=== PATIENT | female | born 1930 | race Caucasian/White ===

== ENCOUNTER 2019-08-24 10:23 | Inpatient (IN) | payer OTHER, MEDICAID ==
[~2019-08-24] VITALS: Ht 157.5 cm; Wt 68.9 kg
[2019-08-24] MEDS ORDERED: SODIUM CHLORIDE 0.9% 500 ML IV ONE (10:36)
[2019-08-24] MEDS ORDERED: ONDANSETRON HCL 4 MG/2 ML VIAL IV ONE (10:45)
[2019-08-24] MEDS ORDERED: MORPHINE SULF INJ 2 MG/ML SYRINGE 1ML IV ONE (10:45)
[2019-08-24 11:07] LABS: Basophils # (auto) 0.1 uL; Basophils % (auto) 1.3 % (0.0-2.0); Eosinophils # (auto) 0.1 uL; Eosinophils % (auto) 1.2 % (0.0-7.0); Hematocrit 39.7 % (36.0-46.0); Hemoglobin 13.9 g/dL (12.2-16.2); Lymphocytes # (auto) 2.9 uL; Lymphocytes % (auto) 27.3 % (10.0-50.0); Mean Corpuscular Hemoglobin 32.6 pg (28.0-32.0); Mean Corpuscular Hgb Conc. 35.1 g/dL (32.0-36.0); Mean Corpuscular Volume 92.8 fL (80.0-100.0); Monocytes # (auto) 0.9 uL; Neutrophils # (auto) 6.4 uL; Neutrophils % (auto) 61.2 % (37.0-80.0); Platelet Count (auto) 216 10^3/uL (140-450); Red Blood Cells 4.28 10^6/uL (4.0-5.20); White Blood Cell 10.5 10^3/uL (4.4-10.8)
[2019-08-24 11:32] LABS: Albumin 3.7 g/dL (3.4-5.0); BUN/Creatinine Ratio 12.9; Calcium 8.7 mg/dL (8.5-10.1); Potassium 3.9 mmol/L (3.5-5.1)
[2019-08-24 11:36] LABS: Bilirubin, Total 0.7 mg/dL (0.2-1.0); Total Protein 7.3 g/dL (6.4-8.2)
[2019-08-24 12:24] LABS: Urine Bacteria NONE SEEN /hpf (None Seen); Urine Blood 1+ /uL (Negative); Urine Specific Gravity 1.013 (1.001-1.035); Urine WBC 1204 /hpf (0 - 5); Urine WBC Clumps PRESENT /hpf (None Seen)
[2019-08-24] MEDS ORDERED: traMADol HCL 50 MG TAB PO PRN (15:00)
[2019-08-24] MEDS ORDERED: ZOLPIDEM TARTRATE 5 MG TAB PO PRN (15:00)
[2019-08-24] MEDS ORDERED: cefTRIAXone 1GM/50ML D5W 50 ML IV ONE (15:00)
[2019-08-24] MEDS ORDERED: MORPHINE SULF INJ 2 MG/ML SYRINGE 1ML IV PRN (15:00)
[2019-08-24] MEDS ORDERED: DEXTROSE (50%) 50ML SYRG IV PRN (15:00)
[2019-08-24] MEDS ORDERED: ONDANSETRON HCL 4 MG/2 ML VIAL IV PRN (15:00)
[2019-08-24] MEDS ORDERED: NITROGLYCERIN 0.4 MG SL TAB SL PRN (15:00)
[2019-08-24] MEDS ORDERED: ACETAMINOPHEN 500 MG TAB PO PRN (15:00)
[2019-08-24] MEDS: SODIUM CHLORIDE 0.9% 1,000 ML IV SCH (16:17)
--- NOTE | 2019-08-24 16:50 | NUR ---
Telemetry admit from ER SONALI LOZOYA admitted to medsurg unit after SBAR received. Patient oriented to ALETHA NEAL RN primary RN, unit,275 room,B bed, and unit policies regarding patient care and visiting hours. Weighed by bedscale and encouraged to call if they need something. All questions and concerns addressed, patient verbalized understanding.
[2019-08-24 16:58] VITALS: BP 122/59
[2019-08-24 17:00] VITALS: BP 122/59
--- NOTE | 2019-08-24 17:00 | NUR ---
Per patient family will bring in list of home meds.
[2019-08-24] MEDS: ACCU-CHEK COMFORT CURVE STRIP VI SCH ×2 (18:00→21:34)
[2019-08-24] MEDS: InsuLIN REG 1unit/0.01ml Soln (100units/ml) SC SCH ×2 (18:00→21:34)
--- NOTE | 2019-08-24 19:00 | NUR ---
OPENING NOTE Received report from day shift RN. Patient is A&O X's 3-4 with no s/s of distress and patient reports no pain or SOB. Patient has some confusion about where she is at and forgetful about why she came into the hospital but easily reoriented. Educated patient to use call light when in need of assistance. Bed is in lowest/locked position with side rails up X's 2 and call light is within reach of patient. Bed alarm is on and applied non slip socks. Will continue care.
--- NOTE | 2019-08-24 19:10 | NUR ---
CARE ENDORSED TO JOSE MANUEL SUMMERS
[2019-08-24 22:00] VITALS: BP 113/63
[2019-08-25] MEDS: SODIUM CHLORIDE 0.9% 1,000 ML IV SCH ×2 (00:51→09:25)
[2019-08-25 05:00] VITALS: BP 122/57
[2019-08-25] MEDS: InsuLIN REG 1unit/0.01ml Soln (100units/ml) SC SCH ×3 (06:40→16:05)
[2019-08-25] MEDS: ACCU-CHEK COMFORT CURVE STRIP VI SCH ×3 (06:40→16:04)
[2019-08-25 08:42] VITALS: BP 123/54
[2019-08-25] MEDS ORDERED: cefTRIAXone 1GM/50ML D5W 50 ML IV SCH (09:00)
[2019-08-25] MEDS ORDERED: FAMOTIDINE 20 MG TAB PO SCH (10:00)
[2019-08-25] MEDS ORDERED: ENOXAPARIN SOD 40 MG/0.4 ML SYRINGE SC SCH (10:00)
[2019-08-25 13:03] VITALS: BP 109/91
[2019-08-25 16:48] VITALS: BP 131/74
[2019-08-25] MEDS ORDERED: LEVOFLOXACIN 500 MG TAB PO ONE (18:15)
[2019-08-25] MEDS ORDERED: DexAMETHasone SOD PHOS 4 MG/1ML SDV INJ IV ONE (18:45)
--- NOTE | 2019-08-25 19:00 | NUR ---
OPENING NOTE Received report from day shift RNMirella. Patient to be transferred to [place]. Patient and family is aware. All paperwork is being worked on and received all information. Patient is A&O X's 4 with no s/s of distress noted. Patient reports no pain at this time. Educated patient on POC and to use call light when in need of assistance. Patient verbalized understanding. Bed is in lowest/locked position with side rails up X's 2 and call light is within reach of patient. Will continue care.
--- NOTE | 2019-08-25 19:20 | NUR ---
CALLED [facility] TO SET UP TRANSPORT Transport to [place] room 268A transport has been set up. ETA 30 minutes
--- NOTE | 2019-08-25 19:30 | NUR ---
GAVE REPORT TO [facility]' RN Gave report to NICOLASA Delgado at [place]. Full report was given at this time and all questions were answered.
--- NOTE | 2019-08-25 20:10 | NUR ---
CALLED FAMILY MEMBER Attempted to call patient's daughter, Anahi at [phone] with no answer to inform her that patient was transferred and to ensure she knew of the new room number patient will be in. Will try again at a later time.
--- NOTE | 2019-08-25 20:10 | NUR ---
PATIENT TRANSFERRED Patient is being transferred by [facility] to [place] Bed 268A, receiving RN Danny. Patient is A&O X's 4 with no s/s of distress noted. All of patient's belongings were taken home with family member. Patient still has her cane. All paperwork was given to [facility] staff for transport. Patient has a left wrist 20G IV that she will be transferred with and 2L NC. Patient bedrest and was safely transferred from bed to stretcher.
--- NOTE | 2019-08-25 23:00 | NUR ---
NOTIFIED FAMILY Notified patient's daughter, Anahi that patient was transferred to [facility] and gave her the room number. Password was obtained from Anahi at this time as well.
--- NOTE | 2019-08-27 17:10 | NUR ---
Received no call or notification regarding this SS consult
== END 2019-08-25 19:50 | disposition short-term general hospital (02) | DRG 552 ==
LOC: EDBD 10:23 → ER 10:29 → OVERFLOW 10:30 → WEST WING 16:40
PROVIDERS: ADMIT Internal Medicine; ATTEND Internal Medicine
DX: M48.061 Spinal stenosis, lumbar region without neurogenic claudication (principal); N30.90 Cystitis, unspecified without hematuria; E11.40 Type 2 diabetes mellitus with diabetic neuropathy, unspecified; F03.90 Unspecified dementia, unspecified severity, without behavioral disturbance, psychotic disturbance, mood disturbance, and anxiety; G47.00 Insomnia, unspecified; M85.80 Other specified disorders of bone density and structure, unspecified site; M25.461 Effusion, right knee; B96.1 Klebsiella pneumoniae [K. pneumoniae] as the cause of diseases classified elsewhere; W18.39XA Other fall on same level, initial encounter; M11.261 Other chondrocalcinosis, right knee; G89.29 Other chronic pain; M43.16 Spondylolisthesis, lumbar region; K57.30 Diverticulosis of large intestine without perforation or abscess without bleeding; Z90.710 Acquired absence of both cervix and uterus; Z90.89 Acquired absence of other organs; Z90.49 Acquired absence of other specified parts of digestive tract; Y93.89 Activity, other specified; Y92.89 Other specified places as the place of occurrence of the external cause; Y99.8 Other external cause status; Z79.899 Other long term (current) drug therapy
CPT/HCPCS: 36415; 71045; 72131; 73700; 80053; 81001; 82962; 83036; 85025; 85652; 86141; 87086; 87088; 87186; 93005; 94761; 96365; 96366; 96375; G0378; J0696; J2405

== ENCOUNTER 2019-10-01 16:35 | Inpatient (IN) | payer OTHER, MEDICAID ==
[~2019-10-01] VITALS: Ht 157.5 cm; Wt 66.5 kg
[2019-10-01 17:19] LABS: Basophils # (auto) 0.1 uL; Basophils % (auto) 0.7 % (0.0-2.0); Eosinophils # (auto) 0.1 uL; Hematocrit 40.7 % (36.0-46.0); Hemoglobin 13.9 g/dL (12.2-16.2); Lymphocytes # (auto) 3.4 uL; Lymphocytes % (auto) 33.4 % (10.0-50.0); Mean Corpuscular Hemoglobin 31.8 pg (28.0-32.0); Mean Corpuscular Hgb Conc. 34.2 g/dL (32.0-36.0); Mean Corpuscular Volume 93.2 fL (80.0-100.0); Monocytes % (auto) 9.8 % (0.0-12.0); Neutrophils # (auto) 5.6 uL; Neutrophils % (auto) 55.1 % (37.0-80.0); Platelet Count (auto) 203 10^3/uL (140-450); Red Blood Cells 4.36 10^6/uL (4.0-5.20); White Blood Cell 10.2 10^3/uL (4.4-10.8)
[2019-10-01 17:56] LABS: Albumin 3.7 g/dL (3.4-5.0); BUN/Creatinine Ratio 13.9; Calcium 8.1 mg/dL (8.5-10.1); Potassium 3.2 mmol/L (3.5-5.1)
[2019-10-01 18:01] LABS: Bilirubin, Total 0.5 mg/dL (0.2-1.0); Total Protein 7.3 g/dL (6.4-8.2)
[2019-10-01] MEDS ORDERED: MORPHINE SULF INJ 2 MG/ML SYRINGE 1ML IV ONE (20:30)
[2019-10-01] MEDS ORDERED: LORazepam 2MG/ML-1ML VIAL IV ONE (23:15)
[2019-10-02] MEDS ORDERED: POTASSIUM CHL 20 Meq TABLET PO ONE (04:30)
[2019-10-02] MEDS ORDERED: ONDANSETRON HCL 4 MG/2 ML VIAL IV PRN (04:30)
[2019-10-02] MEDS ORDERED: NITROGLYCERIN 0.4 MG SL TAB SL PRN (04:30)
[2019-10-02] MEDS ORDERED: DOCUSATE SOD 100 MG CAP PO PRN (04:30)
[2019-10-02] MEDS ORDERED: DEXTROSE (50%) 50ML SYRG IV PRN (04:30)
[2019-10-02] MEDS ORDERED: MORPHINE SULF INJ 2 MG/ML SYRINGE 1ML IV PRN (04:30)
[2019-10-02] MEDS ORDERED: ACETAMINOPHEN 325 MG TAB PO PRN (04:30)
[2019-10-02] MEDS ORDERED: TEMAZEPAM 15 MG CAP PO PRN (04:30)
[2019-10-02] MEDS: InsuLIN REG 1unit/0.01ml Soln (100units/ml) SC SCH ×2 (06:00→11:47)
[2019-10-02] MEDS: ACCU-CHEK COMFORT CURVE STRIP VI SCH ×2 (06:23→11:47)
[2019-10-02] MEDS ORDERED: LEVOTHYROXINE SODIUM 50 MCG TAB PO SCH (07:00)
[2019-10-02] MEDS ORDERED: ENOXAPARIN SOD 40 MG/0.4 ML SYRINGE SC SCH (10:00)
[2019-10-02] MEDS ORDERED: ASPirin 81 mg TAB PO SCH (10:00)
[2019-10-02] MEDS ORDERED: FAMOTIDINE 20 MG TAB PO SCH (10:00)
--- NOTE | 2019-10-02 10:35 | NUR ---
Telemetry admit from ER SONALI LOZOYA admitted to Telemetry unit after SBAR received. Patient oriented to JOSTIN ÁLVAREZ, primary RN, unit, room, bed, and unit policies regarding patient care and visiting hours. Patient now on continuous telemetry monitoring, tele box # 80 and telemetry reading on arrival to unit is 72. Patient placed on bedside oxygen, weighed by bed scale and encouraged to call if they need something. All questions and concerns addressed, patient verbalized understanding. Note: []
[2019-10-02] MEDS ORDERED: LEVO25TA6 PO (11:13)
[2019-10-02] MEDS ORDERED: SIME80CH6 PO (11:13)
[2019-10-02] MEDS ORDERED: SIMV-8 PO (11:13)
[2019-10-02] MEDS ORDERED: TRAZ50TA2 PO (11:13)
[2019-10-02] MEDS ORDERED: GABA100C9 PO (11:13)
[2019-10-02] MEDS ORDERED: DONE5TAB31 PO (11:13)
[2019-10-02] MEDS ORDERED: CINN500C7 PO (11:13)
[2019-10-02] MEDS ORDERED: ASPI-665 PO (11:13)
[2019-10-02] MEDS ORDERED: IBUP200C3 PO (11:13)
[2019-10-02 13:00] VITALS: BP 129/67
[2019-10-02] MEDS ORDERED: LACTATED RINGER'S 1,000 ML IV ONE (13:30)
--- NOTE | 2019-10-02 15:43 | NUR ---
Discharge planning per SS consult, patient has orders for home health and a FWW. Referral was sent to [facility] [phone] for DME auth [id number]. [facility] [phone] auth [id number] and Loreta, case briefer.
[2019-10-02 16:13] LABS: Urine Bacteria NONE SEEN /hpf (None Seen); Urine Blood 1+ /uL (Negative); Urine Budding Yeast FEW /hpf (None Seen); Urine Mucus FEW (None Seen); Urine Specific Gravity 1.015 (1.001-1.035); Urine WBC 99 /hpf (0 - 5)
[2019-10-02 17:02] VITALS: BP 152/82
--- NOTE | 2019-10-02 17:17 | NUR ---
Discharge from Tele Discharge instructions given as ordered. Encourage to follow up with PMD as instructed. All questions and concerns addressed. Patient verbalized understanding. Medication reconciliation form completed and copy given to patient. IV removed with catheter intact, pressure dressing applied. Telemetry unit returned to ICU. Patient taken to vehicle via wheelchair with all personal belongings, accompanied by staff and family member. No distress noted at time of departure.
[2019-10-02] MEDS ORDERED: ATORVASTATIN 20 MG TAB PO SCH (22:00)
[2019-10-02] MEDS ORDERED: DONEPEZIL HYDROCHLORIDE 5 MG TAB PO SCH (22:00)
== END 2019-10-02 17:17 | disposition home health service (06) | DRG 392 ==
LOC: ER 16:35 → EDBD 16:35 → EDUNIT# 16:35 → TELE 16:36 → TELE-WESTW 10-02 10:48
PROVIDERS: ADMIT Nurse Practitioner; ATTEND Hospitalist
DX: K21.9 Gastro-esophageal reflux disease without esophagitis (principal); E11.9 Type 2 diabetes mellitus without complications; I70.0 Atherosclerosis of aorta; F03.90 Unspecified dementia, unspecified severity, without behavioral disturbance, psychotic disturbance, mood disturbance, and anxiety; E87.6 Hypokalemia; Z90.710 Acquired absence of both cervix and uterus
CPT/HCPCS: 36415; 71045; 80053; 81001; 82962; 83735; 83880; 84484; 85025; 87086; 93005; 96372; 96374; 96375; G0378